=== PATIENT | female | born 1945 | race Asian ===

== ENCOUNTER → 2017-06-24 | Outpatient (RCR) | payer OTHER | END | disposition home or self-care (01) | LOC: PTY 15:15 | DX: M54.5 Low back pain (principal); G89.29 Other chronic pain ==

== ENCOUNTER 2017-07-03 09:00 | Outpatient (RCR) | payer OTHER | END 2017-07-25 | disposition home or self-care (01) | LOC: PTY 09:00 | DX: M54.5 Low back pain (principal); G89.29 Other chronic pain ==

== ENCOUNTER 2017-08-06 11:10 | Outpatient (RCR) | payer OTHER | END 2017-08-24 | disposition home or self-care (01) | LOC: PTY 11:10 | DX: M54.5 Low back pain (principal); G89.29 Other chronic pain ==